=== PATIENT | male | born 1945 | race Hispanic/Latino ===

== ENCOUNTER → 2022-10-31 | Outpatient (CLI) | payer OTHER | END | disposition home or self-care (01) | LOC: RAH 11:53 | PROVIDERS: ATTEND Family Medicine | DX: M25.511 Pain in right shoulder (principal) | CPT/HCPCS: 73030 ==

== ENCOUNTER → 2023-07-19 | Outpatient (CLI) | payer OTHER | END | disposition home or self-care (01) | LOC: RAH 12:53 | PROVIDERS: ATTEND Family Medicine | DX: M19.021 Primary osteoarthritis, right elbow (principal); M25.421 Effusion, right elbow; M79.89 Other specified soft tissue disorders | CPT/HCPCS: 73080 ==